=== PATIENT | male | born 1995 | race Caucasian/White ===

== ENCOUNTER 2022-12-22 17:30 | Emergency (ER) | payer MEDICAID ==
[~2022-12-22] VITALS: Ht 180.3 cm; Wt 88.5 kg
[2022-12-22] MEDS ORDERED: FLUORESCEIN SODIUM 1MG/STRIP LEFTEYE ONE (20:30)
[2022-12-22] MEDS ORDERED: TETRACAINE 0.5% OPHTH DROPS 4ML LEFTEYE ONE (20:30)
[2022-12-22] MEDS ORDERED: TETANUS, DIPHTHERIA, PERTUSSIS VAC/PF 0.5ML (>10YR OLD) IM ONE (20:30)
[2022-12-22] MEDS ORDERED: OCUFLX RIGHTEYE (21:47)
[2022-12-22] MEDS ORDERED: IBUP-2029 MT (21:47)
[2022-12-22 22:10] VITALS: BP 120/82
== END 2022-12-22 22:12 | disposition home or self-care (01) ==
LOC: ER 17:30
DX: T15.91XA Foreign body on external eye, part unspecified, right eye, initial encounter (principal); W45.8XXA Other foreign body or object entering through skin, initial encounter; Y93.89 Activity, other specified; Y92.89 Other specified places as the place of occurrence of the external cause; Y99.0 Civilian activity done for income or pay
CPT/HCPCS: 70480; 90471; 90715; 99285

== ENCOUNTER 2023-06-19 08:35 | Emergency (ER) | payer MEDICAID ==
[~2023-06-19] VITALS: Ht 180.3 cm; Wt 86.2 kg
[~2023-06-19 08:35] MED LIST: IBUP-2029 MT; OCUFLX RIGHTEYE
[2023-06-19 08:37] VITALS: O2SAT 100
[2023-06-19] MEDS ORDERED: IBUPROFEN 600MG TABLET PO STA (10:11)
[2023-06-19] MEDS ORDERED: IBUP-2029 MT (11:42)
[2023-06-19 12:42] VITALS: BP 133/76; PULSE 60; RESP 19; TEMP 98.2
== END 2023-06-19 12:43 | disposition home or self-care (01) ==
LOC: ER 08:35
DX: M54.9 Dorsalgia, unspecified (principal)
CPT/HCPCS: 71045; 99283